=== PATIENT | female | born 1950 | race Caucasian/White ===

== ENCOUNTER 2018-04-08 10:58 | Outpatient (CLI) | payer MEDICARE, OTHER ==
[~2018-04-08 10:58] MED LIST: ASPI-1169 PO; DIPH25CA49 MC; IBUP-1953 PO; LEVO100T9 PO; LORA10TA7 PO; SODI1TAB3 PO
== END 2018-04-08 23:59 ==
LOC: MSC 10:58
PROVIDERS: ATTEND Anesthesiology
DX: M17.0 Bilateral primary osteoarthritis of knee (principal); M19.011 Primary osteoarthritis, right shoulder; G89.29 Other chronic pain; M51.36 Other intervertebral disc degeneration, lumbar region; M70.61 Trochanteric bursitis, right hip; M70.62 Trochanteric bursitis, left hip

== ENCOUNTER 2018-04-16 14:04 | Inpatient (IN) | payer MEDICARE, OTHER ==
[~2018-04-16] VITALS: Ht 170.2 cm; Wt 66.2 kg
--- NOTE | 2018-04-16 14:15 | NUR ---
[facility] FROM [facility] C/O PT STATED SI WITH NO PLANS. A/OX 2, BREATHING EVEN AND UNLABORED. NO SOB, NAD, VITALS STABLE. SAFETY AND COMFORT MEASURES IN PLACE. AWAITING MD ORDERS.
--- NOTE | 2018-04-16 15:00 | NUR ---
URINE OBTAINED AND SENT TO LAB
[2018-04-16 15:09] LABS: APPEARANCE,URINE Clear (CLEAR); BILIRUBIN,URINE Negative (NEGATIVE); BLOOD, URINE Trace-intact Ery/uL (NEGATIVE); COLOR,URINE Light yellow (YELLOW); KETONES,URINE Negative (NEGATIVE); LEUKOCYTE ESTERASE ,URINE Negative (NEGATIVE); NITRITE, URINE Negative (NEGATIVE); PROTEIN,URINE Negative (NEGATIVE); UGLUCOSE Negative (NEGATIVE); UROBILINOGEN,URINE 0.2 EU/dL (0.2)
--- NOTE | 2018-04-16 15:10 | NUR ---
WIRE SAW OPERATOR AT BEDSIDE FOR BLOOD DRAW.
[2018-04-16 15:15] LABS: BASOPHILS % (AUTO) 0.7 % (0.0-2.0); EOSINOPHILS % (AUTO) 0.2 % (0.0-6.0); HEMATOCRIT 34 % (33-45); LYMPHOCYTES # (AUTO) 1.2 /CMM (0.8-4.8); LYMPHOCYTES % (AUTO) 25.1 % (20.0-44.0); MEAN CORPUSCULAR HGB CONC 36 g/dl (31.0-36.0); MEAN CORPUSCULAR VOLUME 91 fL (82-100); MONOCYTES # (AUTO) 0.6 /CMM (0.1-1.30); MONOCYTES % (AUTO) 12.3 % (2.0-12.0); NEUTROPHILS % (AUTO) 61.7 % (43.0-81.0); PLATELET COUNT (AUTO) 192 /CMM (150-450); RDW COEFFICIENT OF VARIATION 11.6 (11.5-15.0); RED BLOOD CELL COUNT(AUTO) 3.72 MIL/uL (4.0-5.2); WHITE BLOOD COUNT (AUTO) 4.8 K/uL (4.3-11.0)
[2018-04-16] MEDS ORDERED: LORAZEPAM 1 MG TABLET ONE (15:18)
[2018-04-16 15:21] LABS: BACTERIA,URINE None seen /HPF (None Seen); SQUAMOUS EPITHELIAL CELL,UR Few /HPF (None Seen); WBC,URINE 0-3 /HPF (0-3)
[2018-04-16 15:26] LABS: CALCIUM, SERUM 8.8 mg/dL (8.5-10.1); CARBON DIOXIDE 28 mmol/L (21-32); CHLORIDE 91 mmol/L (98-107); CREATININE 0.9 mg/dL (0.6-1.3); GLUCOSE 98 mg/dL (74-106); SODIUM SERUM 123 mmol/L (136-145); UREA NITROGEN, BLOOD 15 mg/dL (7-18)
[2018-04-16] MEDS ORDERED: LORAZEPAM 1 MG TABLET PO ONE ×2 (15:30→23:30)
[2018-04-16 15:31] LABS: ACETAMINOPHEN 0 ug/ml (10-30); ALANINE AMINOTRANSFERASE 21 U/L (12-78); ALBUMIN 3.5 g/dL (3.4-5.0); ALCOHOL, BLOOD < 3 mg/dL (0-0); ALKALINE PHOSPHATASE 89 U/L (46-116); ASPARTATE AMINOTRANSFERASE 23 U/L (15-37); BILIRUBIN,DIRECT 0.1 mg/dL (0.0-0.2); BILIRUBIN,TOTAL 0.6 mg/dL (0.2-1.0); TOTAL PROTEIN, SERUM 6.4 g/dL (6.4-8.2)
[2018-04-16 15:32] LABS: SALICYLATE 0.9 mg/dL (2.8-20.0)
[2018-04-16] MEDS ORDERED: OXCA600T5 PO (15:39)
[2018-04-16] MEDS ORDERED: LORA1TAB PO (15:39)
[2018-04-16] MEDS ORDERED: OLAN10TA3 PO (15:39)
[2018-04-16] MEDS ORDERED: TRAZ-214 PO (15:39)
[2018-04-16] MEDS ORDERED: GABA-534 PO (15:39)
[2018-04-16] MEDS ORDERED: IV NS 0.9% 1,000 ML BAG IV ONE (16:00)
--- NOTE | 2018-04-16 16:14 | NUR ---
CALLED DR VIDAL'S OFFICE AND A PAGE WAS SENT OUT TO HIM.
--- NOTE | 2018-04-16 16:15 | NUR ---
CALLED NURSING COMMUNITY SERVICE SPECIALIST AND REQUESTED A TELE BED.
--- NOTE | 2018-04-16 16:20 | NUR ---
NEW IV STARTED ON RIGHT HAND, 20G. IVF STARTED PER MD ORDERS
--- NOTE | 2018-04-16 16:27 | NUR ---
YOUNG SPOKE WITH DM HALL) AND TOLD HER TO ADMIT THIS PATIENT UNDER EPIC. [facility] WAS CALLED AND BERYL GALVAN WAS PAGED.
--- NOTE | 2018-04-16 16:37 | NUR ---
PT IS ASSIGNED TO [facility]#[id number], PT IS DIAGNOSED WITH HYPONATREMIA, AND BERYL GALVAN IS THE ACCEPTING MD
--- NOTE | 2018-04-16 16:38 | NUR ---
REPORT GIVEN TO TRAMAINE PARRA FOR TINO UPON ADMISSION.
[2018-04-16] MEDS ORDERED: MAGN400O6 PO (16:40)
[2018-04-16] MEDS ORDERED: ACET325T53 PO (16:40)
[2018-04-16] MEDS ORDERED: IBUP-1955 PO (16:40)
[2018-04-16] MEDS ORDERED: ATOR10TA PO (16:40)
[2018-04-16] MEDS ORDERED: LIDO30AD10 TP (16:40)
[2018-04-16] MEDS ORDERED: DOCU100C36 PO (16:40)
[2018-04-16] MEDS ORDERED: SENN-167 PO (16:40)
[2018-04-16] MEDS ORDERED: BISA10SU61 RC (16:40)
[2018-04-16] MEDS ORDERED: ACETAMINOPHEN 325 MG TABLET PO PRN (17:00)
[2018-04-16] MEDS ORDERED: ZOLPIDEM TARTRATE 5 MG TABLET PO PRN (17:00)
[2018-04-16] MEDS ORDERED: Z GUARD REMEDY 2 OZ OINT TP PRN (17:00)
[2018-04-16] MEDS ORDERED: MAGNESIUM HYDROXIDE 30 ML UDC PO PRN ×2 (17:00→18:00)
[2018-04-16] MEDS ORDERED: ONDANSETRON HCL/PF 4 MG/2 ML VIAL IVP PRN (17:00)
[2018-04-16] MEDS ORDERED: MAG HYDROX/AL HYDROX/SIMETH 30 ML UDC PO PRN (17:00)
--- NOTE | 2018-04-16 17:00 | NUR ---
EL TEACHER NOTES RECEIVED PATIENT FROM ER VIA RDEAN. PATIENT IS A/O X3, AMBULATORY. PATIENT STATED SI SOMETIMES WITH NO PLANS. DIAGNOSIS OF HYPONATREMIA AND FOR PSYCH EVALUATION. ADMITTING ORDERS NOTED AND CARRIED OUT. NO ACUTE DISTRESS, NO SOB NOTED. IV SITE INTACT AND PATENT. SITTER AT BEDSIDE FOR SAFETY. BED IN LOW/LOCKED POSITION, SIDERAILS UPX2, CALL LIGHT IN REACH. WILL CONTINUE TO MONITOR ACCORDINGLY.
--- NOTE | 2018-04-16 17:00 | NUR ---
PATIENT TRANSPORTED TO [facility] VIA ACLS PROTOCOL. RNTRAMAINE TO PROVIDE TINO.
--- NOTE | 2018-04-16 17:05 | NUR ---
RN NOTES PLACED PATIENT ON TELEMONITORING, SR 85. PATIENT REFUSED TO CHANGE GOWNS AND ALSO REFUSED SKIN ASSESSMENT AT THE MOMENT. PER PATIENT, "I HAVE NO WOUNDS."
[2018-04-16] MEDS ORDERED: ENOXAPARIN SODIUM 40 MG/0.4 ML DISP.SYRIN SQ SCH (17:13)
[2018-04-16] MEDS: HYDROCODONE/APAP 5/325MG 1 EACH TABLET PO PRN (17:59)
[2018-04-16] MEDS: IV NS 0.9% 1,000 ML IV PRN (18:00)
[2018-04-16] MEDS ORDERED: BISACODYL SUPP (10 MG) 10 MG/SUPP.RECT SUPP.RECT RC PRN (18:00)
--- NOTE | 2018-04-16 19:25 | NUR ---
TELE/FOAMING MACHINE OPERATOR; RECEIVED PT'S REPORTS FROM THE DAY SHIFT RN FOR CONTINUITY OF CARE. AT THIS TIME PT IN BED AWAKE, ALERT AND ORIENTED X 3. BREATHING NON LABORED ANS EVEN. ON TELEMETRY. IVF ON PROGRESS OF NS AT 75 ML/ HOUR ON RT HAND. INTACT AND PATENT. PT VERBALLY RESPONSIVE COHERENTLY. ABLE TO ANSWERS QUESTIONS WHEN ASKED. NO SUICIDAL IDEATION AT THIS TIME. BED ON LOWER POSITION AND LOCKED FOR SAFETY. SIDE RAILS X2 ARE UP FOR SAFETY. WILL CONTINUE TO MONITOR. CALL LIGHT WITHIN REACH. SITTER PRESENT .
--- NOTE | 2018-04-16 19:30 | NUR ---
RN CLOSING NOTES PATIENT IN STABLE CONDITION. ALL NEEDS ATTENDED AND PROVIDED. SITTER ON BEDSIDE FOR SAFETY. BED IN LOW/LOCKED POSITION, SIDERAILS UPX2, CALL LIGHT IN REACH. ENDORSED TO NIGHT RN FOR TINO.
--- NOTE | 2018-04-16 19:40 | NUR ---
TELE/DRY CLEANER HAND; PT WENT TO THE BATHROOM VOIDED ONLY NO BM. NOTED SKIN ON HER BACK, SACRAL , LEGS , BOTH FEET AND HEELS ARE CLEAR. BACK TO BED . PT WITH STEADY GAIT.
[2018-04-16 20:00] VITALS: BP 112/61
--- NOTE | 2018-04-16 20:15 | NUR ---
TELE/INVESTIGATIVE SHOPPER; PT DRUNK WATER AT THIS TIME.
[2018-04-16] MEDS ORDERED: LIDOCAINE 5% (PATCH) 1 EA PATCH TP SCH (21:00)
--- NOTE | 2018-04-16 21:00 | NUR ---
TELE/ EMERGENCY VEHICLE DISPATCHER; LIDODERM PATCH 5 % NOT GIVEN. I NOTED PT HAD LIDODERM PATCH ON HER RUC DATED 04-16 AND PT REMOVED IT BECAUSE SHE SAID SHE HAS TO REMOVE IT AT NIGHT PER THE NURSE AT THE FACILITY WHERE SHE CAME FROM. SHE SAID I HAVE THIS PATCH DURING THE DAY AND REMOVE IT AT NIGHT.
[2018-04-16] MEDS: OXCARBAZEPINE 150 MG TABLET PO SCH (21:08)
[2018-04-16] MEDS ORDERED: SENNOSIDES 8.6 MG TABLET PO SCH (22:00)
[2018-04-16] MEDS ORDERED: TRAZODONE 50 MG TABLET PO SCH (22:00)
[2018-04-16] MEDS ORDERED: ATORVASTATIN 10 MG TABLET PO SCH (22:00)
--- NOTE | 2018-04-16 22:20 | NUR ---
TELE/HEATER INSTALLER; PT WENT BRP AGAIN VOIDED YELLOW URINE ONLY NO BM. BACK TO BED . ALSO AT THIS TIME WANTS ATIVAN TAB. SHE SAID SHE CAN'T SLEEP. I TOLD HER SHE HAS AN ORDER OF AMBIEN FOR SLEEP AND SHE SAID IT DOES NOT WORK. FURTHER SHE SAID I AM AGITATED BECAUSE I HAVE NOT SLEEP FOR A WEEK. NO SUICIDAL IDEATION AT THIS TIME. I TOLD THE PT I WILL PLACE A CALL TO THE DOCTOR.
--- NOTE | 2018-04-16 22:25 | NUR ---
TELE/STATOR CONNECTOR; I PLACED A CALL TO DR. OROSCO WHO IS GLUE BONE DRIER; I SPOKE TO THE LADY HOUSING ASSISTANT AND SHE SAID SHE WILL CALL HIM AND CALL ME BACK. AWAITING. I TOLD THE PT THAT I PLACED A CALL TO THE DOCTOR AND WAITING FOR HIS RETURN CALL. PT SAID OK.
--- NOTE | 2018-04-16 22:55 | NUR ---
TELE/CHEF KITCHEN MANAGER; I PLACED A 2ND CALL TO DR. OROSCO THE LADY BUTCHERETTE SAID SHE WILL CALL HIM AGAIN AND WILL CALL YOU BACK. AWAITING.
--- NOTE | 2018-04-16 23:00 | NUR ---
TELE/STAFF COMBAT INFORMATION CENTER OFFICER; DR. OROSCO RETURNED HIS CALL AND I NOTIFIED HIM THAT PT WANTS AN ATIVAN 2 MG TAB. BECAUSE SHE IS AGITATED BECAUSE SHE HAS NOT SLEEP FOR A WEEK. I TOLD THE PT. THAT THERE IS AN ORDER OF AMBIEN FOR SLEEP BUT PT SAID IT DOES NOT WORK. DR. OROSCO ORDERED ATIVAN 1 MG 1 TAB. PO X ONE AND HE SAID PT CAN TALK TO THE DOCTOR WHO ADMITTED HER TOMORROW. SO I TOLD THE PT OF THE ATIVAN ORDER.
--- NOTE | 2018-04-16 23:10 | NUR ---
TELE/FITTINGS TIGHTENER; I CALLED THE ON LINE PHARMACIST # I SPOKE TO DAYDAY ABOUT THE ATIVAN ORDERED AND SHE SAID IT IS VERIFIED.
[2018-04-16 23:20] VITALS: BP 110/64
--- NOTE | 2018-04-16 23:20 | NUR ---
TELE/TRAILER STEERER; VITAL SIGNS TAKEN; TEMP. 97.6 ORALLY, BP ON LA 110/ 64, P 82, R 18 , O2 SAT ON RA 94 %.
--- NOTE | 2018-04-16 23:25 | NUR ---
TELE/PAI GOW DEALER; ATIVAN 1 MG PO TAB. X ONE ORDERED GIVEN .
--- NOTE | 2018-04-17 01:00 | NUR ---
TELE/LICENSE REGISTRATION EXAMINER; PT IN BED SLEEPING. BREATHING NON LABORED. IVF ON PROGRESS. SITTER PRESENT IN THE ROOM.
--- NOTE | 2018-04-17 02:00 | NUR ---
TELE/INFORMATION MANAGEMENT OFFICER; PT IN BED ASLEEP. IVF ON PROGRESS. BREATHING NON LABORED. CONTINUE TO MONITOR.
--- NOTE | 2018-04-17 03:00 | NUR ---
TELE/MEDICAL OFFICE TECHNICIAN; PT IN BED STILL SLEEPING. IVF INFUSING. BREATHING NON LABORED.
--- NOTE | 2018-04-17 04:00 | NUR ---
TELE/CARBON BRUSHES ASSEMBLER; PT IN BED STILL SLEEPING. BREATHING NON LABORED. IVF ON PROGRESS. VITAL SIGNS NOT TAKEN AT THIS TIME DUE TO PT IS SLEEPING. BEFORE MIDNIGHT PT WAS TELLING ME NOT TO WAKE HER UP FOR TAKING VITAL SIGNS OR ANYTHING WHEN SHE IS SLEEPING .
--- NOTE | 2018-04-17 05:35 | NUR ---
TELE/DRESSAGE INSTRUCTOR; PT ON SR 81 PER MT.
[2018-04-17 05:45] VITALS: BP 110/67
--- NOTE | 2018-04-17 06:00 | NUR ---
TELE/ANIMAL HEALTH TECHNICIAN; PT IS AWAKE I ASKE IF SHE SLEEP AND SHE SAID YES. I OFFERED BED BATH SHE SAID LATER ON. SHE WASH ALSO ASKING SHE CAN HAVE SHOWER LATER ON . I TOLD HER I WILL INFORM THE DAY SHIFT NURSE. PT WENT BACK TO SLEEP. IVF ON PROGRESS. NO MENTIONED OF PAIN. SITTER IS PRESENT AT ALL TIMES. PT IS WEARING HER JACKET AND PANT ON NOW. SHE WAS ON HER HOSPITAL GOWN LAST NIGHT. SHE SAID SHE IS NOT COMFORTABLE WITH THE HOSPITAL GOWN. PT BACK TO SLEEP.
[2018-04-17 06:32] LABS: ALBUMIN 3.5 g/dL (3.4-5.0); BILIRUBIN,TOTAL 0.5 mg/dL (0.2-1.0); CALCIUM, SERUM 9.3 mg/dL (8.5-10.1); CREATININE 0.9 mg/dL (0.6-1.3); MAGNESIUM 2.1 mg/dL (1.8-2.4); PHOSPHORUS 3.6 mg/dL (2.5-4.9); POTASSIUM 4.3 mmol/L (3.5-5.1); TOTAL PROTEIN, SERUM 6.3 g/dL (6.4-8.2)
--- NOTE | 2018-04-17 06:46 | NUR ---
TELE/INSULATION FOREMAN; PT IN BED SLEEPING AT THIS TIME. BREATHING NON LABORED AND EVEN. IVF ON PROGRESS. NO SI NOTED. NO C/O PAIN. VOIDED SEVERAL TIMES TO YELLOW COLOR AT THE BATHROOM. WILL CONTINUE TO MONITOR. WILL ENDORSE TO THE DAY SHIFT NURSE FOR CONTINUITY OF CARE.
[2018-04-17] MEDS: IV NS 0.9% 1,000 ML IV PRN (06:57)
--- NOTE | 2018-04-17 07:15 | NUR ---
RN OPENING NOTES RECEIVED PATIENT IN BED, ALERT AND ORIENTED X 3. NO ACUTE DISTRESS, NO SOB. DENIED PAIN OR DISCOMFORT. IV SITE INTACT AND PATENT. KEPT PATIENT SAFE AND COMFORTABLE. SITTER ON BEDSIDE FOR SAFETY. NO SI NOTED. BED IN LOW/LOCKED POSITION, SIDERAILS UP, CALL LIGHT WITHIN REACH. WILL CONTINUE TO MONITOR ACCORDINGLY
[2018-04-17 07:30] LABS: BASOPHILS % (AUTO) 0.4 % (0.0-2.0); EOSINOPHILS % (AUTO) 0.1 % (0.0-6.0); HEMATOCRIT 35 % (33-45); HEMOGLOBIN 12.2 g/dL (11.5-14.8); LYMPHOCYTES # (AUTO) 1.1 /CMM (0.8-4.8); LYMPHOCYTES % (AUTO) 29.5 % (20.0-44.0); MEAN CORPUSCULAR VOLUME 91 fL (82-100); MONOCYTES # (AUTO) 0.5 /CMM (0.1-1.30); MONOCYTES % (AUTO) 14.6 % (2.0-12.0); NEUTROPHILS % (AUTO) 55.4 % (43.0-81.0); PLATELET COUNT (AUTO) 174 /CMM (150-450); RDW COEFFICIENT OF VARIATION 12.4 (11.5-15.0); RED BLOOD CELL COUNT(AUTO) 3.82 MIL/uL (4.0-5.2); WHITE BLOOD COUNT (AUTO) 3.6 K/uL (4.3-11.0)
[2018-04-17] MEDS ORDERED: LEVOTHYROXINE SODIUM 100 MCG TABLET PO SCH (07:30)
[2018-04-17] MEDS ORDERED: PANTOPRAZOLE 40 MG TABLET.DR PO SCH (07:30)
[2018-04-17 07:31] LABS: MEAN CORPUSCULAR HGB CONC 35 g/dl (31.0-36.0)
[2018-04-17 07:41] LABS: THYROID STIMULATING HORMONE 1.268 uIU/mL (0.358-3.74)
[2018-04-17 08:00] VITALS: BP 106/68
[2018-04-17] MEDS: DOCUSATE SODIUM 100 MG CAPSULE PO SCH ×2 (08:29→17:14)
[2018-04-17] MEDS: OXCARBAZEPINE 150 MG TABLET PO SCH (08:30)
[2018-04-17] MEDS: GABAPENTIN 300 MG CAPSULE PO SCH ×3 (08:30→17:12)
[2018-04-17] MEDS ORDERED: ASPIRIN 81 MG TAB.CHEW PO SCH (09:00)
[2018-04-17] MEDS ORDERED: LIDOCAINE 5% (PATCH) 1 EA PATCH TP SCH (09:00)
[2018-04-17] MEDS ORDERED: OLANZAPINE 10 MG TABLET PO SCH (09:00)
[2018-04-17] MEDS ORDERED: LORATADINE 10 MG TABLET PO SCH (09:00)
[2018-04-17] MEDS ORDERED: LORAZEPAM INJ 2 MG/ML VIAL IV PRN (13:30)
[2018-04-17] MEDS: HYDROCODONE/APAP 5/325MG 1 EACH TABLET PO PRN (15:32)
[2018-04-17 16:00] VITALS: BP 97/51
[2018-04-17 16:22] VITALS: BP 116/62
[2018-04-17] MEDS ORDERED: OLANZAPINE 5 MG TABLET PO SCH (17:00)
[2018-04-17] MEDS ORDERED: QUETIAPINE FUMARATE 25 MG TABLET PO SCH (17:00)
--- NOTE | 2018-04-17 19:00 | NUR ---
RETAIL ADVISOR NOTES DISCHARGED PATIENT IN STABLE CONDITION. PATIENT DISCHARGE TO [facility] GPS ACCOMPANIED BY PRIMARY NURSE. BEDSIDE REPORT GIVEN TO GPS FIDEL PRESTON, DISCHARGE INSTRUCTIONS GIVEN WELL. ALL BELONGINGS RETURNED, FORM SIGNED. REMOVE PIV, APPLIED PRESSURE, NO BLEEDING, NO COMPLICATIONS. REMOVE NAME BAND.
[2018-04-17] MEDS ORDERED: OXCARBAZEPINE 150 MG TABLET PO SCH (21:00)
== END 2018-04-17 18:45 | DRG 641 ==
LOC: ER 14:05 → TELE 17:01 → MED 04-17 16:42
PROVIDERS: ADMIT Hospitalist; ATTEND Hospitalist
DX: E87.1 Hypo-osmolality and hyponatremia (principal); F25.9 Schizoaffective disorder, unspecified; R45.851 Suicidal ideations; E03.9 Hypothyroidism, unspecified; E78.5 Hyperlipidemia, unspecified; G89.29 Other chronic pain; Z88.0 Allergy status to penicillin; M19.90 Unspecified osteoarthritis, unspecified site; F41.9 Anxiety disorder, unspecified; F31.9 Bipolar disorder, unspecified; E78.1 Pure hyperglyceridemia; K59.00 Constipation, unspecified; E87.79 Other fluid overload
CPT/HCPCS: 36415; 80048-TC; 80053-TC; 80061-TC; 80076-TC; 80305; 81000-TC; 83735-TC; 83935-TC; 84100-TC; 84300-TC; 84443-TC; 85025-TC; 87081-TC; A4606; G0480; J1650; J2060; J7030; Z7610

== ENCOUNTER 2018-04-17 19:05 | Inpatient (IN) | payer MEDICARE, OTHER ==
[~2018-04-17] VITALS: Ht 170.2 cm; Wt 68.5 kg
[~2018-04-17 19:05] MED LIST changes: +ACET325T53 PO; +ATOR10TA PO; +BISA10SU61 RC; -DIPH25CA49 MC; +DOCU100C36 PO; +GABA-534 PO; -IBUP-1953 PO; +IBUP-1955 PO; +LIDO30AD10 TP; +LORA1TAB PO; +MAGN400O6 PO; +OLAN10TA3 PO; +OXCA600T5 PO; +SENN-167 PO; -SODI1TAB3 PO; +TRAZ-214 PO
[2018-04-17] MEDS ORDERED: MAGNESIUM HYDROXIDE 30 ML UDC PO PRN ×2 (19:30→21:00)
[2018-04-17] MEDS ORDERED: MAG HYDROX/AL HYDROX/SIMETH 30 ML UDC PO PRN (19:30)
[2018-04-17 20:00] VITALS: BP 126/79
[2018-04-17] MEDS: LORAZEPAM 0.5 MG TABLET PO PRN (20:10)
--- NOTE | 2018-04-17 20:15 | NUR ---
GPS SAND MOLDER NOTES: ADMITTED A 68YO FEMALE FROM [facility]. PT ON 5150 HOLD FOR DANGER TO SELF. PER HOLD PATIENT HAS EPISODES OF OUTBURST OF ANGER. PT REPORTEDLY HAS COMMAND HALLUCINATIONS BUT DENIES S/I. UPON FACE TO FACE EVALUATION, PATIENT IS ALERT AND ORIENTED X2-3. PATIENT APPEARS UNKEMPT, DISHEVELED, GUARDED. PATIENT REFUSED TO SIGN CONSENT FORMS. V/S STABLE. NO COMPLAIN OF PAIN/DISCOMFORT AT THIS TIME. NO SOB. RESPIRATION EVEN AND UNLABORED. SKIN BODY ASSESSMENT DONE. PICTURES TAKEN. SAFETY AND FALL PRECAUTIONS OBSERVED. CONTRABAND CHECKLIST DONE. CONTRABAND ITEMS FOUND AND PUT IT IN SAFE/LOCKED CABINET. REORIENTATION TO UNIT, STAFF, POLICIES AND DOCTORS DONE. MED RECON DONE BY DR. OROSCO. WILL CONTINUE TO MONITOR FOR SAFETY AND [id number] MINS FOR SAFETY AND BEHAVIOR.
[2018-04-17] MEDS ORDERED: ACETAMINOPHEN 325 MG TABLET PO PRN (21:00)
[2018-04-17] MEDS ORDERED: BISACODYL SUPP (10 MG) 10 MG/SUPP.RECT SUPP.RECT RC PRN (21:00)
[2018-04-17] MEDS: ACETAMINOPHEN 325 MG TABLET PO PRN (21:21)
[2018-04-17] MEDS: ATORVASTATIN 10 MG TABLET PO SCH (21:26)
[2018-04-17] MEDS: SENNOSIDES 8.6 MG TABLET PO SCH (21:26)
[2018-04-17] MEDS: LIDOCAINE 5% (PATCH) 1 EA PATCH TP SCH (21:29)
[2018-04-17] MEDS: TEMAZEPAM 7.5 MG CAPSULE PO PRN (21:49)
[2018-04-18] MEDS: LORAZEPAM 0.5 MG TABLET PO PRN ×2 (02:16→09:20)
[2018-04-18] MEDS: ACETAMINOPHEN 325 MG TABLET PO PRN (03:24)
[2018-04-18] MEDS: IBUPROFEN 600 MG TABLET PO PRN (04:51)
[2018-04-18 08:00] VITALS: BP 148/83
[2018-04-18 08:11] LABS: BASOPHILS % (AUTO) 0.3 % (0.0-2.0); EOSINOPHILS % (AUTO) 0.1 % (0.0-6.0); HEMATOCRIT 35 % (33-45); HEMOGLOBIN 12.4 g/dL (11.5-14.8); LYMPHOCYTES # (AUTO) 1.1 /CMM (0.8-4.8); LYMPHOCYTES % (AUTO) 27.3 % (20.0-44.0); MEAN CORPUSCULAR HGB CONC 36 g/dl (31.0-36.0); MEAN CORPUSCULAR VOLUME 93 fL (82-100); MONOCYTES # (AUTO) 0.5 /CMM (0.1-1.30); MONOCYTES % (AUTO) 12.2 % (2.0-12.0); NEUTROPHILS # (AUTO) 2.4 /CMM (1.8-8.9); NEUTROPHILS % (AUTO) 60.1 % (43.0-81.0); PLATELET COUNT (AUTO) 182 /CMM (150-450); RDW COEFFICIENT OF VARIATION 12.2 (11.5-15.0); RED BLOOD CELL COUNT(AUTO) 3.72 MIL/uL (4.0-5.2); WHITE BLOOD COUNT (AUTO) 4.1 K/uL (4.3-11.0)
[2018-04-18 08:24] LABS: ALBUMIN 3.6 g/dL (3.4-5.0); BILIRUBIN,TOTAL 0.4 mg/dL (0.2-1.0); CALCIUM, SERUM 9.8 mg/dL (8.5-10.1); CREATININE 1.2 mg/dL (0.6-1.3); POTASSIUM 4.3 mmol/L (3.5-5.1); TOTAL PROTEIN, SERUM 6.5 g/dL (6.4-8.2)
[2018-04-18] MEDS: LEVOTHYROXINE SODIUM 100 MCG TABLET PO SCH (08:35)
[2018-04-18] MEDS: ASPIRIN 81 MG TAB.CHEW PO SCH (08:35)
[2018-04-18] MEDS: LORATADINE 10 MG TABLET PO SCH (08:35)
[2018-04-18] MEDS: GABAPENTIN 300 MG CAPSULE PO SCH ×3 (08:35→16:30)
[2018-04-18] MEDS: DOCUSATE SODIUM 100 MG CAPSULE PO SCH ×2 (08:35→16:29)
[2018-04-18] MEDS: OLANZAPINE 5 MG TABLET PO SCH ×3 (09:11→16:29)
[2018-04-18] MEDS: QUETIAPINE FUMARATE 25 MG TABLET PO SCH ×3 (09:11→16:29)
[2018-04-18] MEDS: LIDOCAINE 5% (PATCH) 1 EA PATCH TP SCH ×2 (09:12→21:15)
--- NOTE | 2018-04-18 09:21 | NUR ---
GPS RN NOTE: PT REQUESTING MEDICATION FOR ANXIETY , PT LOOK RESTLESS ATIVAN 0.5 MG PO PRN GIVEN PER ORDER WILL CONTINUE MONITORING FOR SAFETY AND BEHAVIOR Q 15 MIN
--- NOTE | 2018-04-18 12:50 | NUR ---
INITIAL DISCHARGE PLAN: Pt wants to return to [facility] Address: [address] [place] [address] . SW will help form a safe and proper discharge in collaboration with .
[2018-04-18 16:00] VITALS: BP_SYST 106; BP_SYST 127; BP_DIAS 67; BP_DIAS 69
[2018-04-18] MEDS: OXCARBAZEPINE 150 MG TABLET PO SCH (16:29)
[2018-04-18 20:00] VITALS: BP 106/52
[2018-04-18] MEDS: SENNOSIDES 8.6 MG TABLET PO SCH (21:15)
[2018-04-18] MEDS: ATORVASTATIN 10 MG TABLET PO SCH (21:15)
[2018-04-18] MEDS: MIRTAZAPINE 15 MG TABLET PO SCH (21:15)
[2018-04-18] MEDS: TEMAZEPAM 7.5 MG CAPSULE PO PRN (23:17)
--- NOTE | 2018-04-18 23:17 | NUR ---
GPN RN NOTE PT. C/O " CAN YOU PLEASE GIVE ME MY PILL MEDS." RESTORIL 7.5 MG PO GIVEN PER ORDER. WILL REASSESS AND CONTINUE TO MONITOR PT. FOR SAFETY.
[2018-04-19] MEDS: IBUPROFEN 600 MG TABLET PO PRN ×2 (04:13→12:28)
--- NOTE | 2018-04-19 04:14 | NUR ---
GPS RN NOTES C/O OF RIGHT LEG PAIN -MOTRIN 600MG TAB GIVEN ORDERED, WILL CONTINUE TO MONITOR PTS.
[2018-04-19] MEDS: DOCUSATE SODIUM 100 MG CAPSULE PO SCH ×2 (08:11→17:00)
[2018-04-19] MEDS: LORAZEPAM 0.5 MG TABLET PO PRN (08:11)
[2018-04-19] MEDS: LORATADINE 10 MG TABLET PO SCH (08:11)
[2018-04-19] MEDS: QUETIAPINE FUMARATE 25 MG TABLET PO SCH ×3 (08:11→17:00)
[2018-04-19] MEDS: LEVOTHYROXINE SODIUM 100 MCG TABLET PO SCH (08:11)
[2018-04-19] MEDS: LIDOCAINE 5% (PATCH) 1 EA PATCH TP SCH ×2 (08:11→21:44)
[2018-04-19] MEDS: GABAPENTIN 300 MG CAPSULE PO SCH ×3 (08:11→17:00)
[2018-04-19] MEDS: OXCARBAZEPINE 150 MG TABLET PO SCH ×2 (08:11→17:00)
[2018-04-19] MEDS: OLANZAPINE 5 MG TABLET PO SCH ×3 (08:11→17:00)
[2018-04-19] MEDS: ASPIRIN 81 MG TAB.CHEW PO SCH (08:11)
[2018-04-19 08:23] VITALS: BP 100/65
[2018-04-19 15:49] VITALS: BP 128/59
[2018-04-19 20:00] VITALS: BP 108/56
[2018-04-19] MEDS: SENNOSIDES 8.6 MG TABLET PO SCH (21:44)
[2018-04-19] MEDS: MIRTAZAPINE 15 MG TABLET PO SCH (21:44)
[2018-04-19] MEDS: ATORVASTATIN 10 MG TABLET PO SCH (21:45)
[2018-04-19] MEDS: TEMAZEPAM 7.5 MG CAPSULE PO PRN (23:46)
--- NOTE | 2018-04-20 00:01 | NUR ---
Pt has been with flat affect & depressed mood but med compliant w/o any promptings.
[2018-04-20 08:18] LABS: CALCIUM, SERUM 9.8 mg/dL (8.5-10.1); POTASSIUM 4.2 mmol/L (3.5-5.1)
[2018-04-20] MEDS: ASPIRIN 81 MG TAB.CHEW PO SCH (08:42)
[2018-04-20] MEDS: DOCUSATE SODIUM 100 MG CAPSULE PO SCH ×2 (08:42→16:05)
[2018-04-20] MEDS: QUETIAPINE FUMARATE 25 MG TABLET PO SCH ×3 (08:42→16:06)
[2018-04-20] MEDS: GABAPENTIN 300 MG CAPSULE PO SCH ×3 (08:42→16:05)
[2018-04-20] MEDS: LORATADINE 10 MG TABLET PO SCH (08:42)
[2018-04-20] MEDS: LEVOTHYROXINE SODIUM 100 MCG TABLET PO SCH (08:42)
[2018-04-20] MEDS: OXCARBAZEPINE 150 MG TABLET PO SCH ×2 (08:42→16:05)
[2018-04-20] MEDS: OLANZAPINE 5 MG TABLET PO SCH ×3 (08:43→16:06)
[2018-04-20] MEDS: LIDOCAINE 5% (PATCH) 1 EA PATCH TP SCH ×2 (08:48→21:40)
[2018-04-20] MEDS: LORAZEPAM 0.5 MG TABLET PO PRN ×3 (10:01→22:22)
[2018-04-20 16:00] VITALS: BP 124/71
--- NOTE | 2018-04-20 16:08 | NUR ---
GPS RN NOTE: PT ANXIOUS CRYING , DEPRESSED MOOD ATIVAN 0.5 MG PO PRN GIVEN WILL CONTINUE MONITORING
--- NOTE | 2018-04-20 19:30 | NUR ---
ADMITTED DIRECTLY FROM [facility]. PATIENT ADMITTED ON 5150 FOR DTS/DTO, AUDITORY HALLUCINATION, SUICIDAL IDEATION AND GENERAL FEELING OF UNREST. PATIENT IS HEARING VOICES, TELLING HIM TO HURT HIMSELF AND OTHERS. PATIENT STATED THAT HE IS PARANOID AND SEE THINGS THAT ARE NOT THERE. HE IS OFF HIS PSYCH MEDS FOR A WHILE. STATED THAT HE HAS PLAN TO OVERDOSE HIMSELF WITH HIS MEDICATIONS. PATIENT AWAKE, ALERT, ORIENTED X3, SHOWS NO S/S OF ANY PAIN AT THIS TIME. PATIENT IS AMBULATORY, SKIN WARM DRY AND INTACT. NO APPARENT DISTRESS NOTED. BELONGINGS WERE INVENTORIED AND CHECKED FOR CONTRABAND. VALUABLES PLACED TO SAFE. PATIENT IS UNDER THE PSYCH. CARE OF DR. RAYGOZA AND MEDICAL CARE OF DR. OROSCO. PATIENT IS DEPRESSED, ADMITS TO AUDITORY HALLUCINATION, AND SI. PATIENT REFUSED PNEUMONIA AND FLU VACCINE. PATIENT IS COOPERATIVE, INTERACTS WHEN ENGAGED, DEPRESSED, CALM. PATIENT LIVES ALONE, NO FAMILY TO BE CALLED ABOUT HIS ADMISSION TO THE UNIT. MRSA SCREEN DONE. VITALS WITHIN NORMAL RANGE. HAS ALLERGY TO PENICILLIN. MED RECON TO BE DONE IN THE MORNING. BED LOCKED AND PLACED ON LOWEST POSITION. WILL CONTINUE TO MONITOR Q 15 MINS. TO MAINTAIN SAFETY. Addendum: 04/20/18 at 4434 by COLLINS ANNA RN ABOVE NOTE INTENDED FOR ANOTHER PATIENT. USER ERROR
[2018-04-20] MEDS: MIRTAZAPINE 15 MG TABLET PO SCH (21:40)
[2018-04-20] MEDS: SENNOSIDES 8.6 MG TABLET PO SCH (21:40)
[2018-04-20] MEDS: ATORVASTATIN 10 MG TABLET PO SCH (21:40)
[2018-04-20] MEDS: TEMAZEPAM 7.5 MG CAPSULE PO PRN (21:41)
--- NOTE | 2018-04-20 21:43 | NUR ---
TEMAZEPAM 7.5 MG CAP 1 PO GIVEN FOR SLEEP.
--- NOTE | 2018-04-20 22:22 | NUR ---
PATIENT CAME TO THE N. STATION, REQUESTING FOR ATIVAN FOR ANXIETY. ATIVAN 0.5 MG TAB 1 PO GIVEN.
[2018-04-21] MEDS: ACETAMINOPHEN 325 MG TABLET PO PRN ×3 (01:28→22:35)
--- NOTE | 2018-04-21 01:30 | NUR ---
PATIENT C/O HEADACHE, TYLENOL 650 MG TAB PO GIVEN.
[2018-04-21] MEDS: LORAZEPAM 0.5 MG TABLET PO PRN ×2 (04:38→10:43)
--- NOTE | 2018-04-21 04:39 | NUR ---
Ativan 0.5 mg tab 1 po given for anxiety.
[2018-04-21 08:24] VITALS: BP 147/84
[2018-04-21] MEDS: GABAPENTIN 300 MG CAPSULE PO SCH ×3 (08:26→16:04)
[2018-04-21] MEDS: OLANZAPINE 5 MG TABLET PO SCH ×3 (08:26→16:04)
[2018-04-21] MEDS: DOCUSATE SODIUM 100 MG CAPSULE PO SCH ×2 (08:26→16:03)
[2018-04-21] MEDS: LORATADINE 10 MG TABLET PO SCH (08:26)
[2018-04-21] MEDS: LIDOCAINE 5% (PATCH) 1 EA PATCH TP SCH ×2 (08:26→21:23)
[2018-04-21] MEDS: QUETIAPINE FUMARATE 25 MG TABLET PO SCH ×3 (08:26→16:04)
[2018-04-21] MEDS: OXCARBAZEPINE 150 MG TABLET PO SCH ×2 (08:26→16:04)
[2018-04-21] MEDS: ASPIRIN 81 MG TAB.CHEW PO SCH (08:26)
[2018-04-21] MEDS: LEVOTHYROXINE SODIUM 100 MCG TABLET PO SCH (08:28)
--- NOTE | 2018-04-21 14:57 | NUR ---
GPS RN NOTE: PT CRYING , ANXIOUS DR ROSCOE Vazquez ORDER ATIVAN 1 MG Q4 HR PRN FOR 24 HR DC AT 04/22/18 1500. ORDER PLACED AND CARED OUT. WILL CONTINUE MONITORING FOR SAFETY AND BEHAVIOR Q 15 MIN.
[2018-04-21] MEDS: LORAZEPAM 1 MG TABLET PO PRN ×3 (15:09→23:19)
--- NOTE | 2018-04-21 15:23 | NUR ---
GPS RN NOTE: PT EXTREMELY ANXIOUS ATIVAN 1 MG PO PRN GIVEN WILL CONTINUE MONITORING
[2018-04-21 16:00] VITALS: BP 150/92
--- NOTE | 2018-04-21 19:09 | NUR ---
GPS RN NOTE: PT ANXIOUS, PARANOID YELLING, CANT CONTROL BEHAVIOR ATIVAN 1 MG PO Q4 HR PRN GIVEN PER ORDER, WILL CONTINUE MONITORING FOR SAFETY AND BEHAVIOR Q 15 MIN.
[2018-04-21 20:08] VITALS: BP 145/72
[2018-04-21] MEDS: ATORVASTATIN 10 MG TABLET PO SCH (21:24)
[2018-04-21] MEDS: MIRTAZAPINE 15 MG TABLET PO SCH (21:24)
[2018-04-21] MEDS: SENNOSIDES 8.6 MG TABLET PO SCH (21:24)
[2018-04-21] MEDS: TEMAZEPAM 7.5 MG CAPSULE PO PRN (21:24)
[2018-04-22] MEDS: LORAZEPAM 1 MG TABLET PO PRN ×2 (03:21→10:13)
[2018-04-22] MEDS: IBUPROFEN 600 MG TABLET PO PRN (03:21)
[2018-04-22 08:00] VITALS: BP 114/79
[2018-04-22] MEDS: ASPIRIN 81 MG TAB.CHEW PO SCH (08:48)
[2018-04-22] MEDS: OLANZAPINE 5 MG TABLET PO SCH ×3 (08:48→16:57)
[2018-04-22] MEDS: DOCUSATE SODIUM 100 MG CAPSULE PO SCH ×2 (08:48→16:56)
[2018-04-22] MEDS: OXCARBAZEPINE 150 MG TABLET PO SCH ×2 (08:48→16:57)
[2018-04-22] MEDS: LIDOCAINE 5% (PATCH) 1 EA PATCH TP SCH ×2 (08:48→21:13)
[2018-04-22] MEDS: GABAPENTIN 300 MG CAPSULE PO SCH ×3 (08:48→16:56)
[2018-04-22] MEDS: LORATADINE 10 MG TABLET PO SCH (08:48)
[2018-04-22] MEDS: LEVOTHYROXINE SODIUM 100 MCG TABLET PO SCH (08:48)
[2018-04-22] MEDS: QUETIAPINE FUMARATE 25 MG TABLET PO SCH ×3 (08:48→16:57)
--- NOTE | 2018-04-22 10:13 | NUR ---
[id number]: GAVE ATIVAN 1 MG PO DUE TO SEVERE ANXIETY UPON PT REQUEST AND WILL CONTINUE TO MONITOR FOR EFFECTIVENESS OF MEDICATION
--- NOTE | 2018-04-22 11:47 | NUR ---
WILLIE was contacted by Hoa Mcdaniel mental health worker at [facility] [phone] to coordinate discharge after care follow up appointment.
[2018-04-22 16:00] VITALS: BP 102/62
[2018-04-22 20:06] VITALS: BP 112/68
[2018-04-22] MEDS: MIRTAZAPINE 15 MG TABLET PO SCH (21:13)
[2018-04-22] MEDS: SENNOSIDES 8.6 MG TABLET PO SCH (21:13)
[2018-04-22] MEDS: ATORVASTATIN 10 MG TABLET PO SCH (21:13)
[2018-04-23 08:00] VITALS: BP 117/91
[2018-04-23] MEDS: LEVOTHYROXINE SODIUM 100 MCG TABLET PO SCH (08:16)
[2018-04-23] MEDS: ASPIRIN 81 MG TAB.CHEW PO SCH (08:19)
[2018-04-23] MEDS: GABAPENTIN 300 MG CAPSULE PO SCH ×3 (08:19→16:48)
[2018-04-23] MEDS: QUETIAPINE FUMARATE 25 MG TABLET PO SCH ×3 (08:19→16:48)
[2018-04-23] MEDS: DOCUSATE SODIUM 100 MG CAPSULE PO SCH ×2 (08:19→16:48)
[2018-04-23] MEDS: LORATADINE 10 MG TABLET PO SCH (08:19)
[2018-04-23] MEDS: OLANZAPINE 5 MG TABLET PO SCH ×3 (08:19→16:48)
[2018-04-23] MEDS: OXCARBAZEPINE 150 MG TABLET PO SCH ×2 (08:19→16:48)
[2018-04-23] MEDS: LIDOCAINE 5% (PATCH) 1 EA PATCH TP SCH ×2 (08:20→21:20)
[2018-04-23] MEDS: IBUPROFEN 600 MG TABLET PO PRN (08:47)
--- NOTE | 2018-04-23 08:51 | NUR ---
GPS/RN-NOTES PATIENT C/O 7/10 LOWER BACK PAIN AND REQUESTING FOR PAIN MEDICATION. MOTRIN 600 MG P.O GIVEN PRN ORDER. WILL CONT. MONITORING FOR SAFETY.
[2018-04-23] MEDS: LORAZEPAM 0.5 MG TABLET PO PRN (09:56)
--- NOTE | 2018-04-23 09:58 | NUR ---
GPS/RN-NOTES PATIENT STATED" I DON'T HAVE ANY PAIN AT THIS TIME BUT I NEED ATIVAN, I'M VERY ANXIOUS". ATIVAN 0.5MG P.O GIVEN PRN ORDER. WILL CONT.MONITORING FOR SAFETY AND BEHAVIOR.
[2018-04-23] MEDS ORDERED: QUETIAPINE FUMARATE 25 MG TABLET PO ONE (10:00)
--- NOTE | 2018-04-23 10:15 | NUR ---
GPS/RN-NOTES PATIENT WATCHING TV IN THE DAY ROOM,CALM,NO ACUTE DISTRESS NOTED.
[2018-04-23 16:00] VITALS: BP 109/74
[2018-04-23 20:16] VITALS: BP 131/77
[2018-04-23] MEDS: MIRTAZAPINE 15 MG TABLET PO SCH (21:19)
[2018-04-23] MEDS: ATORVASTATIN 10 MG TABLET PO SCH (21:19)
[2018-04-23] MEDS: SENNOSIDES 8.6 MG TABLET PO SCH (21:19)
[2018-04-23] MEDS: ZOLPIDEM TARTRATE 10 MG TABLET PO PRN (22:00)
--- NOTE | 2018-04-23 22:02 | NUR ---
GPS NOTES. C/O " CAN YOU GET ME SOMETHING TO HELP ME SLEEP?" PT. GIVEN ZOLPIDEM 10 MG ORDERED. WILL REASSESS AND MONITOR FOR SAFETY.
[2018-04-24 08:00] VITALS: BP 117/62
[2018-04-24] MEDS: OLANZAPINE 5 MG TABLET PO SCH ×3 (08:04→16:42)
[2018-04-24] MEDS: QUETIAPINE FUMARATE 25 MG TABLET PO SCH ×4 (08:04→21:07)
[2018-04-24] MEDS: GABAPENTIN 300 MG CAPSULE PO SCH ×3 (08:04→16:42)
[2018-04-24] MEDS: LORATADINE 10 MG TABLET PO SCH (08:05)
[2018-04-24] MEDS: ASPIRIN 81 MG TAB.CHEW PO SCH (08:05)
[2018-04-24] MEDS: LEVOTHYROXINE SODIUM 100 MCG TABLET PO SCH (08:05)
[2018-04-24] MEDS: OXCARBAZEPINE 150 MG TABLET PO SCH ×2 (08:05→16:42)
[2018-04-24] MEDS: LIDOCAINE 5% (PATCH) 1 EA PATCH TP SCH ×2 (08:06→21:06)
[2018-04-24] MEDS: DOCUSATE SODIUM 100 MG CAPSULE PO SCH ×2 (08:06→16:42)
--- NOTE | 2018-04-24 10:01 | NUR ---
Pt. with an order from Dr. Oleary to D/C hold and D/C to [facility] ([place], [place]) and to follow up with psych and medical doctors. Pt. denies suicidal and homicidal. Belongings ready and pictures taken for skin issues.
--- NOTE | 2018-04-24 10:52 | NUR ---
Rayshawn Mckeon made aware of pts. discharge and said ok to discharge to [facility] and to continue same meds including prn.
--- NOTE | 2018-04-24 12:18 | NUR ---
WILLIE contacted Hoa Mcdaniel mental health worker at [facility] [phone] to schedule follow up appointment for pt. WILLIE left voicemail for call back.
[2018-04-24] MEDS: IBUPROFEN 600 MG TABLET PO PRN (13:19)
--- NOTE | 2018-04-24 13:53 | NUR ---
SW was contacted by Hoa Mcdaniel mental health worker at [facility] [phone] stating that after speaking to pt over the phone pt reported that she was having suicidal thoughts with a plan to cut her wrist after learning she was being discharged today. Hoa informed SW that pt reported that as soon as she returned to [facility] she was going to cut her wrist. After SW spoke with pt, pt confirmed suicidal thoughts with no plan. Pt stated to SW that she did not want to leave the hospital because she was not ready. SW contacted psychiatrist to inform her.
--- NOTE | 2018-04-24 14:23 | NUR ---
Last Chalker and the commercial lines underwriter spoke to the pt. and pt. saying that she is still suicidal with no specific plan and doesn't want to leave the hospital because she is not ready yet. Dr. Oleary made aware and rescinded the discharge order. Addendum: 04/25/18 at 0703 by REMBERTO FERRER RN Linda Blake made aware.
--- NOTE | 2018-04-24 14:26 | NUR ---
WILLIE contacted Hoa Mcdaniel mental health worker at [facility] [phone] to inform her pt will not be discharging today due to suicidal ideations.
[2018-04-24] MEDS: LORAZEPAM 0.5 MG TABLET PO PRN (15:04)
[2018-04-24 16:18] VITALS: BP 139/76
[2018-04-24 20:00] VITALS: BP 116/55
[2018-04-24] MEDS: ATORVASTATIN 10 MG TABLET PO SCH (21:07)
[2018-04-24] MEDS: SENNOSIDES 8.6 MG TABLET PO SCH (22:00)
[2018-04-24] MEDS: MIRTAZAPINE 15 MG TABLET PO SCH (22:01)
[2018-04-25] MEDS: ZOLPIDEM TARTRATE 10 MG TABLET PO PRN ×2 (00:38→22:06)
[2018-04-25 08:00] VITALS: BP 127/77
[2018-04-25] MEDS: ASPIRIN 81 MG TAB.CHEW PO SCH (08:38)
[2018-04-25] MEDS: QUETIAPINE FUMARATE 25 MG TABLET PO SCH ×4 (08:38→21:16)
[2018-04-25] MEDS: DOCUSATE SODIUM 100 MG CAPSULE PO SCH ×2 (08:38→16:45)
[2018-04-25] MEDS: GABAPENTIN 300 MG CAPSULE PO SCH ×3 (08:38→16:45)
[2018-04-25] MEDS: LEVOTHYROXINE SODIUM 100 MCG TABLET PO SCH (08:38)
[2018-04-25] MEDS: OXCARBAZEPINE 150 MG TABLET PO SCH ×2 (08:39→16:45)
[2018-04-25] MEDS: LORATADINE 10 MG TABLET PO SCH (08:39)
[2018-04-25] MEDS: OLANZAPINE 5 MG TABLET PO SCH ×3 (08:39→16:46)
[2018-04-25] MEDS: LIDOCAINE 5% (PATCH) 1 EA PATCH TP SCH ×2 (08:47→21:16)
[2018-04-25] MEDS: LORAZEPAM 0.5 MG TABLET PO PRN ×2 (09:40→19:19)
[2018-04-25 16:19] VITALS: BP 137/87
--- NOTE | 2018-04-25 19:19 | NUR ---
GPS NOTE. C/O " CAN I GET SOME ATIVAN, I FEEL ANXIOUS RIGHT NOW." LORAZEPAM 0.5 MG PO GIVEN TO PATIENT ORDERED. WILL REASSES AND CONTINUE TO MONITOR FOR SAFETY.
[2018-04-25] MEDS: IBUPROFEN 600 MG TABLET PO PRN (19:41)
--- NOTE | 2018-04-25 19:42 | NUR ---
GPS NOTE. C/O " DO I HAVE ANYTHING ORDERED FOR PAIN? I HAVE A HEADACHE." PAIN LEVEL 4/10, THROBBING. IBUPROFEN 600 MG PO GIVEN ORDERED. WILL CONTINUE REEVALUATE AND TO MONITOR PATIENT FOR SAFETY.
[2018-04-25 20:16] VITALS: BP 129/74
--- NOTE | 2018-04-25 20:19 | NUR ---
GPS NOTE. PT. LAYING COMFORTABLY IN BED. NO COMPLAINS OF ANXIETY AT THIS TIME. WILL CONTINUE TO MONITOR FOR SAFETY.
--- NOTE | 2018-04-25 20:42 | NUR ---
GPS NOTE. PAIN REASSESSMENT Addendum: 04/25/18 at 2053 by JERICA RODRIGUES RN WILL CONTINUE TO MONITOR FOR SAFETY.
[2018-04-25] MEDS: MIRTAZAPINE 15 MG TABLET PO SCH (21:16)
[2018-04-25] MEDS: SENNOSIDES 8.6 MG TABLET PO SCH (21:16)
[2018-04-25] MEDS: ATORVASTATIN 10 MG TABLET PO SCH (21:16)
[2018-04-26] MEDS: LORAZEPAM 0.5 MG TABLET PO PRN ×3 (02:08→22:25)
--- NOTE | 2018-04-26 02:09 | NUR ---
GPS NOTE: C/O " CAN I GET MY ATIVAN, I AM FEELING ANXIOUS." LORAZEPAM 0.5 MG PO GIVEN ORDERED. WILL CONTINUE TO REASSESS AND MONITOR FOR SAFETY.
[2018-04-26 08:00] VITALS: BP 110/62
[2018-04-26] MEDS: DOCUSATE SODIUM 100 MG CAPSULE PO SCH ×2 (08:10→16:58)
[2018-04-26] MEDS: ASPIRIN 81 MG TAB.CHEW PO SCH (08:10)
[2018-04-26] MEDS: LEVOTHYROXINE SODIUM 100 MCG TABLET PO SCH (08:10)
[2018-04-26] MEDS: QUETIAPINE FUMARATE 25 MG TABLET PO SCH ×4 (08:10→21:18)
[2018-04-26] MEDS: GABAPENTIN 300 MG CAPSULE PO SCH ×3 (08:10→16:58)
[2018-04-26] MEDS: OLANZAPINE 5 MG TABLET PO SCH ×3 (08:10→16:58)
[2018-04-26] MEDS: LORATADINE 10 MG TABLET PO SCH (08:20)
[2018-04-26] MEDS: OXCARBAZEPINE 150 MG TABLET PO SCH ×3 (08:20→16:58)
[2018-04-26] MEDS: LIDOCAINE 5% (PATCH) 1 EA PATCH TP SCH ×2 (09:00→21:19)
[2018-04-26 09:09] LABS: CALCIUM, SERUM 9.6 mg/dL (8.5-10.1); CREATININE 1.1 mg/dL (0.6-1.3)
[2018-04-26 16:00] VITALS: BP 135/82
[2018-04-26 20:00] VITALS: BP 119/76
[2018-04-26] MEDS: MIRTAZAPINE 15 MG TABLET PO SCH (21:18)
[2018-04-26] MEDS: SENNOSIDES 8.6 MG TABLET PO SCH (21:18)
[2018-04-26] MEDS: ATORVASTATIN 10 MG TABLET PO SCH (21:18)
[2018-04-26] MEDS: ZOLPIDEM TARTRATE 10 MG TABLET PO PRN (21:19)
[2018-04-26] MEDS: IBUPROFEN 600 MG TABLET PO PRN (22:33)
[2018-04-27 08:00] VITALS: BP 104/57
--- NOTE | 2018-04-27 08:30 | NUR ---
GPS RN NOTE: PT FEELING ANXIOUS ATIVAN GIVEN PER ORDER
[2018-04-27] MEDS: GABAPENTIN 300 MG CAPSULE PO SCH ×3 (08:36→16:25)
[2018-04-27] MEDS: LEVOTHYROXINE SODIUM 100 MCG TABLET PO SCH (08:36)
[2018-04-27] MEDS: QUETIAPINE FUMARATE 25 MG TABLET PO SCH ×4 (08:36→21:17)
[2018-04-27] MEDS: DOCUSATE SODIUM 100 MG CAPSULE PO SCH ×2 (08:36→16:25)
[2018-04-27] MEDS: LORAZEPAM 0.5 MG TABLET PO PRN ×2 (08:36→15:23)
[2018-04-27] MEDS: OXCARBAZEPINE 150 MG TABLET PO SCH ×3 (08:36→16:25)
[2018-04-27] MEDS: ASPIRIN 81 MG TAB.CHEW PO SCH (08:36)
[2018-04-27] MEDS: LIDOCAINE 5% (PATCH) 1 EA PATCH TP SCH ×2 (08:37→20:50)
[2018-04-27] MEDS: OLANZAPINE 5 MG TABLET PO SCH ×3 (08:37→16:26)
[2018-04-27] MEDS: LORATADINE 10 MG TABLET PO SCH (08:37)
[2018-04-27] MEDS: IBUPROFEN 600 MG TABLET PO PRN (13:44)
[2018-04-27 15:54] VITALS: BP 116/68
[2018-04-27 19:56] VITALS: BP 114/70
[2018-04-27] MEDS: MIRTAZAPINE 15 MG TABLET PO SCH (21:16)
[2018-04-27] MEDS: SENNOSIDES 8.6 MG TABLET PO SCH (21:16)
[2018-04-27] MEDS: ATORVASTATIN 10 MG TABLET PO SCH (21:16)
[2018-04-27] MEDS: ZOLPIDEM TARTRATE 10 MG TABLET PO PRN (21:17)
[2018-04-28] MEDS: IBUPROFEN 600 MG TABLET PO PRN ×3 (01:26→22:13)
--- NOTE | 2018-04-28 01:26 | NUR ---
GPS RN NOTE PT WOKE UP C/O OR RT KNEE PAIN 5/, MOTRIN 600 MG PO GIVEN WITH PUDDING, CONTINUE TO MONITOR HER.
[2018-04-28 07:53] VITALS: BP 104/54
[2018-04-28] MEDS: DOCUSATE SODIUM 100 MG CAPSULE PO SCH ×2 (08:28→17:31)
[2018-04-28] MEDS: LEVOTHYROXINE SODIUM 100 MCG TABLET PO SCH (08:29)
[2018-04-28] MEDS: LORATADINE 10 MG TABLET PO SCH (08:29)
[2018-04-28] MEDS: OXCARBAZEPINE 150 MG TABLET PO SCH ×3 (08:29→17:31)
[2018-04-28] MEDS: QUETIAPINE FUMARATE 25 MG TABLET PO SCH ×4 (08:29→21:11)
[2018-04-28] MEDS: OLANZAPINE 5 MG TABLET PO SCH ×3 (08:29→17:31)
[2018-04-28] MEDS: GABAPENTIN 300 MG CAPSULE PO SCH ×3 (08:29→17:31)
[2018-04-28] MEDS: ASPIRIN 81 MG TAB.CHEW PO SCH (08:30)
[2018-04-28] MEDS: LIDOCAINE 5% (PATCH) 1 EA PATCH TP SCH ×2 (08:30→21:11)
[2018-04-28] MEDS: LORAZEPAM 0.5 MG TABLET PO PRN ×2 (08:59→23:27)
[2018-04-28 15:57] VITALS: BP 121/80
[2018-04-28 19:53] VITALS: BP 99/50
[2018-04-28] MEDS: MIRTAZAPINE 15 MG TABLET PO SCH (21:11)
[2018-04-28] MEDS: ATORVASTATIN 10 MG TABLET PO SCH (21:11)
[2018-04-28] MEDS: SENNOSIDES 8.6 MG TABLET PO SCH (21:11)
--- NOTE | 2018-04-28 23:27 | NUR ---
GPS-RN PATIENT C/O FEELING ANXIOUS AND REQUESTED FOR ATIVAN. VSS. ADMINISTERED ATIVAN 0.5MG PO ORDERED. WILL CONTINUE TO MONITOR Q15MIN ROUNDS FOR SAFETY.
[2018-04-29] MEDS: ACETAMINOPHEN 325 MG TABLET PO PRN (01:59)
[2018-04-29 08:00] VITALS: BP 101/52
[2018-04-29] MEDS: OLANZAPINE 5 MG TABLET PO SCH ×2 (08:56→12:39)
[2018-04-29] MEDS: LORATADINE 10 MG TABLET PO SCH (08:56)
[2018-04-29] MEDS: LORAZEPAM 0.5 MG TABLET PO PRN (08:56)
[2018-04-29] MEDS: ASPIRIN 81 MG TAB.CHEW PO SCH (08:56)
[2018-04-29] MEDS: DOCUSATE SODIUM 100 MG CAPSULE PO SCH (08:56)
[2018-04-29] MEDS: OXCARBAZEPINE 150 MG TABLET PO SCH ×2 (08:56→12:39)
[2018-04-29] MEDS: GABAPENTIN 300 MG CAPSULE PO SCH ×2 (08:56→12:39)
[2018-04-29] MEDS: LIDOCAINE 5% (PATCH) 1 EA PATCH TP SCH (08:57)
[2018-04-29] MEDS: QUETIAPINE FUMARATE 25 MG TABLET PO SCH (08:57)
[2018-04-29] MEDS: LEVOTHYROXINE SODIUM 100 MCG TABLET PO SCH (08:57)
[2018-04-29] MEDS: IBUPROFEN 600 MG TABLET PO PRN (12:39)
[2018-04-29] MEDS ORDERED: QUETIAPINE FUMARATE 25 MG TABLET PO SCH ×2 (13:00→22:00)
--- NOTE | 2018-04-29 14:12 | NUR ---
DISCHARGE NOTE: Pt discharged at 2:00pm to [facility] via [facility] ambulance trip # [id number] Address: [address] [place] [id number] . Pt agreed to discharge plan. Pts mood was euthymic and affect was flat. Pt denied suicidal/homicidal ideations and denied visual/auditory hallucinations. Patient was provided referrals to address his substance use. Patient was referred to the [facility] [id number] [place] [id number] / and was encouraged to present at 9am on Saturday, April 30, 2018. Additional resources included [facility] [address] [place] [address] and [facility] [address] [place] [address] . Pt will be under the medical care of Maintenance Technician 3Rd Shift: Dr Rosales Address: [address] [place] [address] and Psychiatrist: Dr. Penny Oleary [address] [address] [phone]. The multidisciplinary exitcare form was done, printed, signed, and given to the patient. Addendum: 04/29/18 at 1436 by SIDNEY TAPIA Pt also has a scheduled appointment with Britney mental health therapist from [facility] [phone] on May 02, 2018 at 1:00pm. SW faxed H&P and psych progress note to Britney at [phone].
--- NOTE | 2018-04-29 15:53 | NUR ---
PATIENT LEFT THE UNIT AT 1430 WITH AMBULANCE. PSYCHIATRIST ORDERED DISCHARGE ORDER, D/C HOLD, AND PRESCRIPTION. FOREIGN AGENT MADE AWARE OF DISCHARGE AND AGREES. PATIENT LEFT WITH BELONGINGS. PATIENT SIGNS EXIT CARE PAPERS. EXIT CARE PAPERS EXPLAINED TO PATIENT. SKIN ASSESSMENT REFUSED BY PATIENT.
--- NOTE | 2018-05-19 12:45 | NUR ---
15 DAY POST DISCHARGE SUBSTANCE ABUSE FOLLOW-UP: pt excluded due to discharge to SNF.
== END 2018-04-29 14:30 | DRG 885 ==
LOC: GPS 19:05
PROVIDERS: ADMIT Psychiatry & Neurology Psychosomatic Medicine; ATTEND Hospitalist
DX: F25.0 Schizoaffective disorder, bipolar type (principal); E22.2 Syndrome of inappropriate secretion of antidiuretic hormone; G62.9 Polyneuropathy, unspecified; F23 Brief psychotic disorder; E03.9 Hypothyroidism, unspecified; F32.9 Major depressive disorder, single episode, unspecified; F41.9 Anxiety disorder, unspecified; Z73.6 Limitation of activities due to disability; E78.5 Hyperlipidemia, unspecified; G89.4 Chronic pain syndrome; I10 Essential (primary) hypertension; I25.10 Atherosclerotic heart disease of native coronary artery without angina pectoris; K59.00 Constipation, unspecified; M19.90 Unspecified osteoarthritis, unspecified site; F19.90 Other psychoactive substance use, unspecified, uncomplicated; R73.9 Hyperglycemia, unspecified
CPT/HCPCS: 36415; 80048-TC; 80053-TC; 80061-TC; 85025-TC; 87081-TC

== ENCOUNTER 2018-07-14 11:31 | Emergency (ER) | payer MEDICARE, OTHER ==
[~2018-07-14] VITALS: Ht 167.6 cm; Wt 68.5 kg
[2018-07-14 12:11] LABS: EOSINOPHILS % (AUTO) 0.2 % (0.0-6.0); HEMATOCRIT 41 % (33-45); HEMOGLOBIN 13.9 g/dL (11.5-14.8); LYMPHOCYTES # (AUTO) 1.5 /CMM (0.8-4.8); LYMPHOCYTES % (AUTO) 30.6 % (20.0-44.0); MEAN CORPUSCULAR HEMOGLOBIN 31 PG (26.0-33.0); MEAN CORPUSCULAR HGB CONC 34 g/dl (31.0-36.0); MEAN CORPUSCULAR VOLUME 90 fL (82-100); MONOCYTES # (AUTO) 0.4 /CMM (0.1-1.30); MONOCYTES % (AUTO) 7.8 % (2.0-12.0); NEUTROPHILS # (AUTO) 2.9 /CMM (1.8-8.9); NEUTROPHILS % (AUTO) 60.4 % (43.0-81.0); PLATELET COUNT (AUTO) 203 /CMM (150-450); RDW COEFFICIENT OF VARIATION 11.7 (11.5-15.0); RED BLOOD CELL COUNT(AUTO) 4.48 MIL/uL (4.0-5.2); WHITE BLOOD COUNT (AUTO) 4.8 K/uL (4.3-11.0)
[2018-07-14 12:13] LABS: APPEARANCE,URINE Clear (CLEAR); BILIRUBIN,URINE Negative (NEGATIVE); BLOOD, URINE Trace-lysed Ery/uL (NEGATIVE); COLOR,URINE Yellow (YELLOW); KETONES,URINE Negative (NEGATIVE); LEUKOCYTE ESTERASE ,URINE Trace (NEGATIVE); NITRITE, URINE Negative (NEGATIVE); PROTEIN,URINE Negative (NEGATIVE); UGLUCOSE Negative (NEGATIVE); UROBILINOGEN,URINE 0.2 EU/dL (0.2)
[2018-07-14 12:21] LABS: CALCIUM, SERUM 9.4 mg/dL (8.5-10.1); CARBON DIOXIDE 27 mmol/L (21-32); CHLORIDE 104 mmol/L (98-107); GLUCOSE 102 mg/dL (74-106); POTASSIUM 4.2 mmol/L (3.5-5.1); SODIUM SERUM 136 mmol/L (136-145); UREA NITROGEN, BLOOD 14 mg/dL (7-18)
[2018-07-14 12:35] LABS: ALANINE AMINOTRANSFERASE 26 U/L (12-78); ALBUMIN 3.8 g/dL (3.4-5.0); ALKALINE PHOSPHATASE 104 U/L (46-116); ASPARTATE AMINOTRANSFERASE 16 U/L (15-37); BILIRUBIN,DIRECT 0.1 mg/dL (0.0-0.2); BILIRUBIN,TOTAL 0.5 mg/dL (0.2-1.0); TOTAL PROTEIN, SERUM 6.8 g/dL (6.4-8.2)
[2018-07-14 12:40] LABS: ALCOHOL, BLOOD < 3 mg/dL (0-0)
--- NOTE | 2018-07-14 12:44 | NUR ---
CALLED CORK TILE FLOOR LAYER [place] YOUNG AND WAS TOLD HE WOULD BE HERE WITHIN THE HOUR.
[2018-07-14 12:51] LABS: RBC,URINE 0-2 /HPF (0-2)
[2018-07-14 12:52] LABS: BACTERIA,URINE Few /HPF (None Seen); SQUAMOUS EPITHELIAL CELL,UR Few /HPF (None Seen)
--- NOTE | 2018-07-14 12:57 | NUR ---
CALLED NURSING DRAMATIC CRITIC FOR BED, STATED SHE WOULD TAKE REPORT IN PERSON.
--- NOTE | 2018-07-14 13:54 | NUR ---
CALLED [facility] FOR TRANSPORT TO [facility]
--- NOTE | 2018-07-14 13:55 | NUR ---
[place] ANDERS LCSW AT BS FOR EVAL.
--- NOTE | 2018-07-14 13:55 | NUR ---
ETA AMBULUNZ [phone]
[2018-07-14 14:49] VITALS: BP 124/85
== END 2018-07-14 14:50 | disposition home or self-care (01) ==
LOC: ER 11:37
DX: K62.89 Other specified diseases of anus and rectum (principal); F32.9 Major depressive disorder, single episode, unspecified; F20.9 Schizophrenia, unspecified; R45.851 Suicidal ideations; Z79.82 Long term (current) use of aspirin; Z88.0 Allergy status to penicillin
CPT/HCPCS: 36415; 80048; 80076; 80305; 81001; 85025; 87081; 99284; A4606; G0480; 81000-TC; Z7610